=== PATIENT | female | born 1935 | race Caucasian/White ===

== ENCOUNTER 2016-11-06 07:01 | Emergency (ER) | payer MEDICARE, BC ==
[~2016-11-06] VITALS: Ht 154.9 cm; Wt 64.0 kg
[~2016-11-06 07:01] MED LIST: CENTTAB9 PO; CLOP75 PO; DESLORATADINE; DYAZ; FOSA35TA2 PO; LEVO125T6 OR; LISI-360 PO; NIAC500T34 PO; SIMV10TA OR; VITA400C58 OR
[2016-11-06 07:07] VITALS: BP 154/74; PULSE 68; RESP 18; TEMP 97.5; O2SAT 96
--- NOTE | 2016-11-06 07:11 | PD ---
HPI Chief Complaint: Injury Time Seen by Provider: 07:10 Travel History International Travel<30 days: No Contact w/Intl Traveler<30days: No Traveled to known affect area: No History of Present Illness HPI 81-year-old female came to the emergency room with history of right wrist injury. This happened last night. Patient almost tripped and try to break her fall by extending her right arm and ended up injuring it. Through the night she was in pain and this morning decided to come and seen. Patient denies hitting her head or losing consciousness. She is awake right now and answering questions appropriately. Says when she doesn't move it pain is not there but mostly the pain is when she is doing the supination pronation motion. Vital signs were otherwise stable. [facility] Past Medical History Narrative Medical List of her past medical, surgical, social and family history was reviewed from the nursing Asthma: Yes ( A CHILD) Cancer: No Cardiovascular Problems: Yes COPD: No Diminished Hearing: No Endocrine: Yes Genitourinary: No Hiatal Hernia: Yes (NO PROBLEMS WITH IT, 2 YS AGO) Hypertension: Yes Musculoskeletal: Yes Neurologic: No Psychiatric: No Reproductive: No Respiratory: Yes Sleep Apnea: No Thyroid Disease: Yes (TAKING LEVOTHROID) Past Surgical History Gynecologic Surgery: Yes (HYSTERECTOMY) Hysterectomy: Yes Social History Alcohol Use: No Tobacco Use: No Substance Use: No Allergies-Medications (Allergen,Severity, Reaction): Coded Allergies: Epinephrine (Verified Allergy, 08/14/12) UNABLE TO VERIFY BUT POSSIBILITY Comments List of her allergies reviewed from the nursing note. Reported Meds & Prescriptions Reported Meds & Active Scripts Active Reported Simvastatin 10 Mg Tab 10 Mg OR DAILY 30 Days Plavix (Clopidogrel Bisulfate) 75 Mg Tab 75 Mg PO DAILY 30 Days Vitamin D3 (Cholecalciferol) 400 Unit Cap 400 Unit OR DAILY Dyazide 37.5/25 Mg Cap (Triamterene/Hctz) 1 Cap Cap 1 Cap .XX DAILY Fosamax (Alendronate Sodium) 35 Mg Tab 35 Mg PO WEEKLY Centrum (Multivitamins) Tab 1 Tab PO DAILY Niacin 500 Mg Tab 250 Mg PO [Clarenex] Levothroid (Levothyroxine Sodium) 125 Mcg Tab 125 Mcg OR Lisinopril 10 Mg Tab 10 Mg PO DAILY Narrative Medication List of her home medications reviewed from the nursing note. Review of Systems Except as stated in HPI: all other systems reviewed are Neg Physical Exam Narrative GENERAL: Awake, alert, mild distress, elderly SKIN: Focused skin assessment warm/dry. HEAD: Atraumatic. Normocephalic. EYES: Pupils equal and round. No scleral icterus. No injection or drainage. ENT: No nasal bleeding or discharge. Mucous membranes pink and moist. NECK: Trachea midline. No JVD. CARDIOVASCULAR: Regular rate and rhythm. No murmur appreciated. RESPIRATORY: No accessory muscle use. Clear to auscultation. Breath sounds equal bilaterally. GASTROINTESTINAL: Abdomen soft, non-tender, nondistended. Hepatic and splenic margins not palpable. MUSCULOSKELETAL: No obvious deformities. No clubbing. No cyanosis. No edema. Right wrist has some swelling and tenderness upon palpation. Decreased range of motion forced supination pronation. Distal pulses and sensations intact. NEUROLOGICAL: Awake and alert. No obvious cranial nerve deficits. Motor grossly within normal limits. Normal speech. PSYCHIATRIC: Appropriate mood and affect; insight and judgment normal. Data Data Last Documented VS Orders Wrist, Complete (Ret0pve) (11/06/16 ) Support Splint (11/06/16 08:03) Cockup Hand Splint (11/06/16 ) [facility] Medical Decision Making Medical Screen Exam Complete: Yes Emergency Medical Condition: Yes Medical Record Reviewed: Yes Differential Diagnosis Wrist fracture, contusion, dislocation Narrative Course 7:30 AM patient didn't want anything for the pain. Awaiting for the x-ray to be done and resulted. Patient is applying cold compress by ice pack currently. 8:04 AM the x-ray does not show any fracture. She is going to be discharged home with a cock-up splint. Procedures EKG Prior to Arrival: No Diagnosis Primary Impression: Wrist sprain Qualified Code: S63.501A - Wrist sprain, right, initial encounter Referrals: Primary Care Physician 3 days Additional Instructions: Please return to the ER if the condition worsens or any other new concerns. Keep the arm elevated above the heart level. Apply cold compress. Take Motrin/ Advil/ibuprofen for pain. Follow-up with your primary care in couple days. Med/Other Pt SpecificInfo: No Change to Meds Disposition: 01 DISCHARGE HOME Condition: Stable Darya Lane MD Nov 06, 2016 07:[address] MD Nov 06, 2016 07:11
--- NOTE | 2016-11-06 08:01 | RADHPO ---
EXAM DATE/TIME: 11/06/2016 07:29 [place] COMPARISON: No previous studies available for comparison. INDICATIONS : Right wrist pain post fall last night. MEDICAL HISTORY : Hypertension. Hiatal hernia. Osteoporosis. Asthma. Thyroid disease. SURGICAL HISTORY : Hysterectomy. ENCOUNTER: Initial ACUITY: 2 days PAIN SCORE: 5/10 LOCATION: Right wrist. FINDINGS: 3 views of the right wrist. Diffuse bone demineralization. Large osteophytes and severe narrowing of the thumb carpometacarpal joint. No evidence of acute fracture. Alignment within normal limits. 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 No evidence of fracture. Keny Forbes MD on November 06, 2016 at 7:58 Board Certified Radiologist. This report was verified electronically.
== END 2016-11-06 08:15 | disposition home or self-care (01) ==
LOC: PHED 07:01
DX: S63.501A Unspecified sprain of right wrist, initial encounter (principal); I10 Essential (primary) hypertension; E07.9 Disorder of thyroid, unspecified; W18.40XA Slipping, tripping and stumbling without falling, unspecified, initial encounter; Y93.9 Activity, unspecified; Y92.9 Unspecified place or not applicable; Y99.8 Other external cause status
CPT/HCPCS: 73110; 99283; L3908

== ENCOUNTER 2017-10-27 18:36 | Emergency (ER) | payer MEDICARE, BC ==
[~2017-10-27] VITALS: Ht 154.9 cm; Wt 59.6 kg
[2017-10-27 18:44] VITALS: BP 106/59; PULSE 104; RESP 18; TEMP 97.7; O2SAT 97
--- NOTE | 2017-10-27 19:10 | PD ---
HPI Chief Complaint: General Weakness Time Seen by Provider: 18:56 Travel History International Travel<30 days: No Contact w/Intl Traveler<30days: No Traveled to known affect area: No History of Present Illness HPI This patient complains of generalized weakness. Duration is 4 days. Says that her appetite is poor and she has not been eating or drinking much. She is wondering if she is dehydrated. She denies fever or vomiting or diarrhea or urinary complaints. She was diagnosed with shingles 2 days ago by her primary physician. She is on antiviral medication now. Symptom severity is moderate. No alleviating factors. No exacerbating factors. She is not coughing or short of breath or having any chest pain or syncope. She takes thyroid medication. She denies depression or anxiety PFSH Past Medical History Asthma: Yes ( A CHILD) Cancer: No Cardiovascular Problems: Yes COPD: No Diminished Hearing: No Endocrine: Yes Genitourinary: No Hiatal Hernia: Yes (NO PROBLEMS WITH IT, 2 YS AGO) Hypertension: Yes Implanted Vascular Access Dvce: No Musculoskeletal: Yes Neurologic: No Psychiatric: No Reproductive: No Respiratory: Yes Sleep Apnea: No Thyroid Disease: Yes (TAKING LEVOTHROID) Past Surgical History Gynecologic Surgery: Yes (HYSTERECTOMY) Hysterectomy: Yes Other Surgery: Yes Social History Alcohol Use: No Tobacco Use: No Substance Use: No Allergies-Medications (Allergen,Severity, Reaction): Coded Allergies: epinephrine (Verified Allergy, Unknown, 10/27/17) UNABLE TO VERIFY BUT POSSIBILITY Reported Meds & Prescriptions Reported Meds & Active Scripts Active Reported Probiotic (Saccharomyces Boulardii) 250 Mg Cap 250 Mg PO DAILY Coq10 (Coenzyme Q10 (Ubidecarenone)) 30 Mg Cap 1 Tab PO DAILY Centrum Silver (Multiple Vitamins W/ Minerals) 400 Mcg-250 Mcg Chw 1 Tab PO DAILY Calcium Carbonate 500 Mg Calcium (1250 Mg) Tab 500 Mg PO DAILY 1,250 mg calcium carbonate (500 mg elemental calcium) Plavix (Clopidogrel Bisulfate) 75 Mg Tab 75 Mg PO DAILY Tylenol (Acetaminophen) 325 Mg Tab 650 Mg PO DAILY Atorvastatin (Atorvastatin Calcium) 10 Mg Tab 10 Mg PO DAILY Atorvastatin (Atorvastatin Calcium) 10 Mg Tab 10 Mg PO HS Levothyroxine (Levothyroxine Sodium) 88 Mcg Tab 88 Mcg PO DAILY Lisinopril 10 Mg Tab 10 Mg PO DAILY Vitamin D-1000 (Cholecalciferol) 1,000 Unit Tab 1,000 Units PO DAILY Triamterene-Hydrochlorothiazide 37.5-25 Mg Tab 1 Tab PO DAILY Review of Systems General / Constitutional: No: Fever Eyes: No: Visual changes HENT: No: Headaches Cardiovascular: No: Chest Pain or Discomfort Respiratory: No: Shortness of Breath Gastrointestinal: Positive: Loss of Appetite, No: Abdominal Pain Genitourinary: No: Dysuria Musculoskeletal: Positive: Weakness, No: Pain Skin: No Rash Neurologic: Positive: Weakness Psychiatric: No: Depression Endocrine: No: Polydipsia Hematologic/Lymphatic: No: Easy Bruising Physical Exam Narrative GENERAL: Thin elderly well-developed patient in no apparent distress. SKIN: Focused skin assessment reveals no rash and nodules. Skin is Warm and dry. HEAD: Atraumatic. Normocephalic. EYES: Pupils equal and round. No scleral icterus. No injection or drainage. ENT: No nasal bleeding or discharge. Mucous membranes pink and moist. NECK: Trachea midline. No JVD. CARDIOVASCULAR: Regular rate and rhythm. No murmur appreciated. RESPIRATORY: No accessory muscle use. Clear to auscultation. Breath sounds equal bilaterally. GASTROINTESTINAL: Abdomen soft, non-tender, nondistended. Hepatic and splenic margins not palpable. MUSCULOSKELETAL: No obvious deformities. No clubbing. No cyanosis. No edema. NEUROLOGICAL: Awake and alert. No obvious cranial nerve deficits. Motor grossly within normal limits. Normal speech. PSYCHIATRIC: Appropriate mood and affect; insight and judgment normal. Data Data Last Documented VS Vital Signs Date Time Temp Pulse Resp B/P (MAP) Pulse Ox O2 Delivery O2 Flow Rate FiO2 10/27/17 19:20 65 16 98 Room Air 10/27/17 19:20 103/71 (82) 10/27/17 18:44 97.7 Orders Orders Sodium Chlor 0.9% 1000 Ml Inj (Ns 1000 M (10/27/17 19:15) Complete Blood Count With Diff (10/27/17 19:02) Basic Metabolic Panel (Bmp) (10/27/17 19:02) Thyroid Stimulating Hormone (10/27/17 19:02) Urinalysis - C+S If Indicated (10/27/17 19:02) Urine Culture (10/27/17 20:03) Sodium Chlor 0.9% 1000 Ml Inj (Ns 1000 M (10/27/17 20:45) Labs Laboratory Tests Test 10/27/17 19:25 10/27/17 20:03 White Blood Count 8.4 TH/MM3 Red Blood Count 4.77 MIL/MM3 Hemoglobin 14.4 GM/DL Hematocrit 44.2 % Mean Corpuscular Volume 92.6 FL Mean Corpuscular Hemoglobin 30.1 PG Mean Corpuscular Hemoglobin Concent 32.5 % Red Cell Distribution Width 13.3 % Platelet Count 319 TH/MM3 Mean Platelet Volume 8.9 FL Neutrophils (%) (Auto) 75.9 % Lymphocytes (%) (Auto) 9.7 % Monocytes (%) (Auto) 11.8 % Eosinophils (%) (Auto) 2.0 % Basophils (%) (Auto) 0.6 % Neutrophils # (Auto) 6.3 TH/MM3 Lymphocytes # (Auto) 0.8 TH/MM3 Monocytes # (Auto) 1.0 TH/MM3 Eosinophils # (Auto) 0.2 TH/MM3 Basophils # (Auto) 0.1 TH/MM3 CBC Comment DIFF FINAL Differential Comment Blood Urea Nitrogen 25 MG/DL Creatinine 1.60 MG/DL Random Glucose 114 MG/DL Calcium Level 9.1 MG/DL Sodium Level 134 MEQ/L Potassium Level 4.0 MEQ/L Chloride Level 101 MEQ/L Carbon Dioxide Level 24.9 MEQ/L Anion Gap 8 MEQ/L Estimat Glomerular Filtration Rate 31 ML/MIN Thyroid Stimulating Hormone 3rd Gen 0.229 uIU/ML Urine Color YELLOW Urine Turbidity CLEAR Urine pH 7.0 Urine Specific [place] LESS/EQUAL 1.005 Urine Protein NEG mg/dL Urine Glucose (UA) NEG mg/dL Urine Ketones NEG mg/dL Urine Occult Blood NEG Urine Nitrite NEG Urine Bilirubin NEG Urine Urobilinogen 0.2 MG/DL Urine Leukocyte Esterase LARGE Urine RBC 0-3 /hpf Urine WBC 9-14 /hpf Urine WBC Clumps MOD Urine Squamous Epithelial Cells 0-5 /hpf Urine Mucus FEW /lpf Microscopic Urinalysis Comment CULTURE INDICATED MDM Medical Decision Making Medical Screen Exam Complete: Yes Emergency Medical Condition: Yes Medical Record Reviewed: Yes Differential Diagnosis Dehydration, hypothyroidism, UTI Narrative Course I have reviewed the patient's electronic medical record. CBC is normal Metabolic profile shows some renal insufficiency. I do not have a recent comparison. It is worse than her renal function from 5 years ago. TSH is slightly low. She just had a dosage reduction in her thyroid hormone a couple of weeks ago has an appointment to get this reevaluated. Urinalysis will be cultured. There is a few inflammatory cells. She has absolutely 0 urine symptoms and does not want to empirically get antibiotics. This sounds reasonable. I gave her 1 L normal saline IV Upon recheck she feels improved. I am giving her a second liter of normal saline IV and then she will be stable for discharge after that. She did have some degree of dehydration but that has been corrected Diagnosis Primary Impression: Dehydration, moderate Additional Impressions: Renal insufficiency Generalized weakness Additional Instructions: The patient was advised to follow up with their physician and return if they worsen. Med/Other Pt SpecificInfo: Other Disposition: DISCHARGE HOME Condition: Stable Mike White MD Oct 27, 2017 19:10
[2017-10-27] MEDS ORDERED: SODIUM CHLOR 0.9% 1000 ML INJ 1,000 ML IV ONE ×2 (19:15→20:45)
[2017-10-27 19:20] VITALS: BP 103/71; PULSE 65; RESP 16; O2SAT 98
[2017-10-27 19:53] LABS: AUTOMATED NEUTROPHIL # 6.3 TH/MM3 (1.8-7.7); BASOPHIL # 0.1 TH/MM3 (0-0.2); BASOPHIL % 0.6 % (0.0-2.0); EOSINOPHIL # 0.2 TH/MM3 (0-0.4); HEMATOCRIT 44.2 % (35.0-46.0); HEMOGLOBIN 14.4 GM/DL (11.6-15.3); LYMPH % 9.7 % (9.0-44.0); LYMPHOCYTE # 0.8 TH/MM3 (1.0-4.8); MEAN CELL VOLUME 92.6 FL (80.0-100.0); MEAN CORPUSCULAR HEMOGLOBIN 30.1 PG (27.0-34.0); MEAN CORPUSCULAR HGB CONC 32.5 % (32.0-36.0); MEAN PLATELET VOLUME 8.9 FL (7.0-11.0); MONO % 11.8 % (0.0-8.0); NEUT % 75.9 % (16.0-70.0); PLATELET COUNT 319 TH/MM3 (150-450); RED BLOOD COUNT 4.77 MIL/MM3 (4.00-5.30); RED CELL DISTRIBUTION WIDTH 13.3 % (11.6-17.2); WHITE BLOOD COUNT 8.4 TH/MM3 (4.0-11.0)
[2017-10-27 19:57] LABS: BICARBONATE 24.9 MEQ/L (21.0-32.0); CALCIUM 9.1 MG/DL (8.5-10.1)
[2017-10-27 20:00] LABS: CREATININE 1.6 MG/DL (0.50-1.00)
[2017-10-27] MEDS ORDERED: TRIA37.5 PO (20:00)
[2017-10-27] MEDS ORDERED: VITA1000 PO (20:19)
[2017-10-27] MEDS ORDERED: COQ130CA PO (20:19)
[2017-10-27] MEDS ORDERED: LISI10TA3 PO (20:19)
[2017-10-27] MEDS ORDERED: CENTCHW3 PO (20:19)
[2017-10-27] MEDS ORDERED: SACC1CAP3 PO (20:19)
[2017-10-27] MEDS ORDERED: LEVO88TA2 PO (20:19)
[2017-10-27] MEDS ORDERED: TYLE325T PO (20:19)
[2017-10-27] MEDS ORDERED: ATOR10TA15 PO ×2 (20:19)
[2017-10-27] MEDS ORDERED: PLAV75TA29 PO (20:19)
[2017-10-27] MEDS ORDERED: CALC12502 PO (20:19)
[2017-10-27 20:20] LABS: BILIRUBIN, URINE NEG (NEG); BLOOD, URINE NEG (NEG); GLUCOSE,URINE NEG (NEG); KETONE, URINE NEG (NEG); NITRITE,URINE NEG (NEG); URINE COLOR YELLOW (YELLW/STRAW); URINE LEUKOCYTE ESTERASE LARGE (NEG)
[2017-10-27 20:29] LABS: MUCUS URINE FEW /lpf (OCC); RBC, URINE 0-3 /hpf (0-3); SQUAMOUS EPITHELIAL CELL URINE 0-5 /hpf (0-5); WHITE BLOOD CELL CLUMPS MOD
[2017-10-27 20:42] VITALS: BP 125/63; PULSE 87; RESP 16; O2SAT 98
== END 2017-10-27 21:46 | disposition home or self-care (01) ==
LOC: PHED 18:36
DX: E86.0 Dehydration (principal); N28.9 Disorder of kidney and ureter, unspecified; R53.1 Weakness; J45.909 Unspecified asthma, uncomplicated; I10 Essential (primary) hypertension; E07.9 Disorder of thyroid, unspecified; Z79.02 Long term (current) use of antithrombotics/antiplatelets; Z79.82 Long term (current) use of aspirin; Z79.899 Other long term (current) drug therapy
CPT/HCPCS: 80048; 81001; 84443; 85025; 87086; 96360; 96361; 99284; J7030